=== PATIENT | female | born 1990 | race Caucasian/White ===

== ENCOUNTER 2018-11-10 11:41 | Outpatient (CLI) | payer OTHER ==
[2018-11-10 12:20] LABS: COLLECTION PERIOD 24 hrs
[2018-11-10 12:24] LABS: ADD UMIC NO; UR ASCORBIC ACID 20 mg/dL (NEGATIVE); UR BILIRUBIN (Dip) NEGATIVE (NEGATIVE); UR BLOOD (Dip) NEGATIVE (NEGATIVE); UR CLARITY CLEAR (CLEAR); UR COLOR YELLOW (YELLOW); UR GLUCOSE (Dip) NEGATIVE (NEGATIVE); UR KETONES (Dip) NEGATIVE (NEGATIVE); UR LEUKOCYTE ESTERASE (Dip) NEGATIVE Leu/ul (NEGATIVE); UR NITRITE (Dip) NEGATIVE (NEGATIVE); UR TOTAL PROTEIN (Dip) NEGATIVE (NEGATIVE); UR UROBILINOGEN (Dip) NEGATIVE (NEGATIVE)
[2018-11-10 12:26] LABS: ADD MAN DIFF? NO
[2018-11-10 12:27] LABS: BASOPHIL # 0.1 10^3/ul (0.0-0.1); BASOPHILS % 0.7 % (0.0-2.0); EOSINOPHILS # 0.3 10^3/ul (0.0-0.5); EOSINOPHILS % 2.8 % (0.0-7.0); HEMATOCRIT 37.4 % (37.0-47.0); HEMOGLOBIN 12.6 g/dl (12.0-16.0); LYMPHOCYTES # 1.7 10^3/ul (0.8-2.9); LYMPHOCYTES % 18.9 % (15.0-51.0); MEAN CORPUSCULAR HEMOGLOBIN 30.7 pg (29.0-33.0); MEAN CORPUSCULAR HGB CONC 33.7 g/dl (32.0-37.0); MEAN CORPUSCULAR VOLUME 91.2 fl (82.0-101.0); MEAN PLATELET VOLUME 10.9 fl (7.4-10.4); MONOCYTE # 0.9 10^3/ul (0.3-0.9); NEUTROPHILS % 66.3 % (39.0-77.0); PLATELET COUNT 189 10^3/UL (140-415); RED CELL DISTRIBUTION WIDTH 14.1 % (11.5-14.5)
[2018-11-10 12:51] LABS: ALANINE AMINOTRANSFERASE 10 IU/L (13-69); ALBUMIN 3.7 g/dl (3.3-4.9); ALKALINE PHOSPHATASE 95 IU/L (42-121); ANION GAP 8 (5-13); ASPARTATE AMINO TRANSFERASE 18 IU/L (15-46); BILIRUBIN,INDIRECT 0.4 mg/dl (0-1.1); BILIRUBIN,TOTAL 0.4 mg/dl (0.2-1.3); BLOOD UREA NITROGEN 12 mg/dl (7-20); CALCIUM 9.1 mg/dl (8.4-10.2); CARBON DIOXIDE 22 mmol/L (21-31); CHLORIDE 107 mmol/L (97-110); CREATININE 0.53 mg/dl (0.44-1.00); Estimated GFR > 60 mL/min (>60); GLUCOSE 76 mg/dl (70-220); INR 0.99; PARTIAL THROMBOPLASTIN TIME 22.9 Sec (23.0-35.0); POTASSIUM 4.2 mmol/L (3.5-5.1); PROTIME 13.2 Sec (11.9-14.9); SODIUM 137 mmol/L (135-144); TOTAL PROTEIN 7.4 g/dl (6.1-8.1); URIC ACID 5.1 mg/dl (3.1-7.9)
[2018-11-10 13:23] LABS: COLLECTION PERIOD 24 hrs; CREATININE CLEARANCE 181.9 mls/min (84.0-162.0); CREATININE,URINE RANDOM 111.07 mg/dl (20-320); SCRET 0.53 mg/dl (0.44-1.00); VOLUME 1250 ml/24hrs; VOLUME 1250 mls
== END 2018-11-10 14:40 | disposition home or self-care (01) ==
LOC: OBT 11:41 → L-D 11:41 → OBT 14:40
DX: O36.5930 Maternal care for other known or suspected poor fetal growth, third trimester, not applicable or unspecified (principal); O36.8330 Maternal care for abnormalities of the fetal heart rate or rhythm, third trimester, not applicable or unspecified; O26.893 Other specified pregnancy related conditions, third trimester; R51 Headache; H53.8 Other visual disturbances; Z3A.36 36 weeks gestation of pregnancy
CPT/HCPCS: 76818; 80053; 81003; 82575; 84156; 84560; 85025; 85384; 85610; 85730

== ENCOUNTER 2018-11-14 11:29 | Outpatient (CLI) | payer OTHER | END 2018-11-14 13:05 | disposition home or self-care (01) | LOC: OBT 11:29 → L-D 11:29 → OBT 13:05 | DX: O36.5930 Maternal care for other known or suspected poor fetal growth, third trimester, not applicable or unspecified (principal); O36.8330 Maternal care for abnormalities of the fetal heart rate or rhythm, third trimester, not applicable or unspecified; Z3A.36 36 weeks gestation of pregnancy | CPT/HCPCS: 76818 ==

== ENCOUNTER 2018-11-24 08:56 | Inpatient (IN) | payer OTHER ==
[2018-11-24 11:13] LABS: ADD MAN DIFF? NO
[2018-11-24 11:15] LABS: WHITE BLOOD COUNT 8.7 10^3/ul (4.8-10.8)
[2018-11-24 11:15] LABS: BASOPHIL # 0.1 10^3/ul (0.0-0.1); BASOPHILS % 0.6 % (0.0-2.0); EOSINOPHILS # 0.2 10^3/ul (0.0-0.5); EOSINOPHILS % 2.5 % (0.0-7.0); HEMATOCRIT 38.2 % (37.0-47.0); HEMOGLOBIN 13.1 g/dl (12.0-16.0); LYMPHOCYTES % 22.4 % (15.0-51.0); MEAN CORPUSCULAR HEMOGLOBIN 31.1 pg (29.0-33.0); MEAN CORPUSCULAR HGB CONC 34.3 g/dl (32.0-37.0); MEAN CORPUSCULAR VOLUME 90.7 fl (82.0-101.0); MEAN PLATELET VOLUME 11.5 fl (7.4-10.4); MONOCYTE # 0.9 10^3/ul (0.3-0.9); MONOCYTES % 10.7 % (0.0-11.0); NEUTROPHIL # 5.5 10^3/ul (1.6-7.5); NEUTROPHILS % 62.9 % (39.0-77.0); PLATELET COUNT 196 10^3/UL (140-415); RED BLOOD COUNT 4.21 10^6/ul (4.20-5.40); RED CELL DISTRIBUTION WIDTH 14.5 % (11.5-14.5)
[2018-11-24] MEDS: LACTATED RINGER'S 1,000 ML IV ×2 (11:18→17:25)
[2018-11-24 11:30] LABS: INR 0.92; PROTIME 12.5 Sec (11.9-14.9)
[2018-11-24] MEDS ORDERED: METHYLERGONOVINE 0.2 MG INJ IM (11:30)
[2018-11-24] MEDS ORDERED: MISOPROSTOL 200 MCG TAB PR (11:30)
[2018-11-24] MEDS ORDERED: LIDOCAINE 1% (MPF) 30 ML INJ INJ (11:30)
[2018-11-24] MEDS ORDERED: OXYTOCIN 30 UNITS/LR 500 ML IV ×2 (11:30)
[2018-11-24] MEDS ORDERED: CARBOPROST 250 MCG INJ IM (11:30)
[2018-11-24] MEDS ORDERED: MISOPROSTOL 50 MCG CAPSULE VAG ×2 (11:30→17:00)
[2018-11-24 11:31] LABS: PARTIAL THROMBOPLASTIN TIME 23.8 Sec (23.0-35.0)
[2018-11-24] MEDS: MISOPROSTOL 50 MCG CAPSULE PO (11:52)
[2018-11-24] MEDS: MISOPROSTOL 50 MCG CAPSULE VAG (16:08)
[2018-11-24] MEDS ORDERED: DIPHENHYDRAMINE 50 MG INJ IV (20:30)
[2018-11-24] MEDS ORDERED: KETOROLAC 30 MG INJ IV (20:30)
[2018-11-24] MEDS ORDERED: HYDROmorphONE 0.5 MG/0.5 ML SYG IV ×2 (20:30)
[2018-11-24] MEDS ORDERED: NALOXONE (0.4 MG/ML) INJ IV (20:30)
[2018-11-24] MEDS: OXYTOCIN 30 UNITS/LR 500 ML IV (22:54)
[2018-11-25] MEDS: LACTATED RINGER'S 1,000 ML IV (04:38)
[2018-11-25] MEDS: FENTAnyl 2MCG/ML-ROPIV 0.2% 100 ML BAG EPI (05:28)
[2018-11-25] MEDS: ONDANSETRON 4 MG INJ IV (09:27)
[2018-11-25] MEDS: OXYTOCIN 30 UNITS/LR 500 ML IV ×2 (10:14→12:54)
[2018-11-25] MEDS ORDERED: MISOPROSTOL 200 MCG TAB PR (13:00)
[2018-11-25] MEDS ORDERED: METHYLERGONOVINE 0.2 MG INJ IM (13:00)
[2018-11-25] MEDS ORDERED: DIPHENHYDRAMINE 25 MG CAP PO (13:00)
[2018-11-25] MEDS ORDERED: ONDANSETRON 4 MG INJ IV (13:00)
[2018-11-25] MEDS ORDERED: ACETAMINOPHEN 325 MG TAB PO (13:00)
[2018-11-25] MEDS ORDERED: OXYTOCIN 30 UNITS/LR 500 ML IV (13:00)
[2018-11-25] MEDS ORDERED: CARBOPROST 250 MCG INJ IM (13:00)
[2018-11-25] MEDS ORDERED: HYDROCODONE/APAP (5/325) TAB PO ×2 (13:00)
[2018-11-25] MEDS: BENZOCAINE 20% 56 ML SPRAY TOP (17:22)
[2018-11-25] MEDS: LANOLIN HPA 1 PKT TOP (17:22)
[2018-11-25] MEDS: WITCH HAZEL/GLYCERIN PAD PR (17:22)
[2018-11-25] MEDS: IBUPROFEN 800 MG TAB PO ×2 (17:23→23:59)
[2018-11-25] MEDS: SENNA/DOCUSATE NA (8.6MG/50MG) TAB PO (21:13)
[2018-11-26] MEDS: IBUPROFEN 800 MG TAB PO ×4 (05:34→23:37)
[2018-11-26 08:40] LABS: ADD MAN DIFF? NO
[2018-11-26 08:47] LABS: BASOPHIL # 0.1 10^3/ul (0.0-0.1); BASOPHILS % 0.5 % (0.0-2.0); EOSINOPHILS # 0.2 10^3/ul (0.0-0.5); EOSINOPHILS % 1.7 % (0.0-7.0); HEMATOCRIT 35.5 % (37.0-47.0); HEMOGLOBIN 11.9 g/dl (12.0-16.0); LYMPHOCYTES # 2.4 10^3/ul (0.8-2.9); LYMPHOCYTES % 18.8 % (15.0-51.0); MEAN CORPUSCULAR HEMOGLOBIN 30.8 pg (29.0-33.0); MEAN CORPUSCULAR HGB CONC 33.5 g/dl (32.0-37.0); MEAN PLATELET VOLUME 11.4 fl (7.4-10.4); MONOCYTE # 0.9 10^3/ul (0.3-0.9); MONOCYTES % 7.3 % (0.0-11.0); PLATELET COUNT 167 10^3/UL (140-415); RED BLOOD COUNT 3.86 10^6/ul (4.20-5.40); RED CELL DISTRIBUTION WIDTH 14.5 % (11.5-14.5)
[2018-11-26 08:47] LABS: WHITE BLOOD COUNT 12.7 10^3/ul (4.8-10.8)
[2018-11-26] MEDS: SENNA/DOCUSATE NA (8.6MG/50MG) TAB PO ×2 (10:11→21:00)
[2018-11-26 15:34] LABS: RAPID PLASMA REAGIN NONREACTIVE (NR)
[2018-11-27] MEDS: IBUPROFEN 800 MG TAB PO ×2 (06:20→12:06)
[2018-11-27] MEDS: SENNA/DOCUSATE NA (8.6MG/50MG) TAB PO (09:00)
[2018-11-27] MEDS: VARICELLA VACCINE LIVE/PF 1,350 UNIT/0.5 ML ML SC* (09:00)
[2018-11-27] MEDS: DIPHTH/TET/ACEL PERTUSS (ADULT) 0.5 ML VIAL IM* (09:00)
[2018-11-27] MEDS: MEASLES,MUMPS,RUBELLA VACCINE INJ SC* (09:00)
[2018-11-27] MEDS: WITCH HAZEL/GLYCERIN PAD PR (11:51)
== END 2018-11-27 16:19 | disposition home or self-care (01) | DRG 806 ==
LOC: PP1 11-25 12:22 → L-D 08:56
PROVIDERS: Obstetrics & Gynecology
PROC: 10E0XZZ Delivery of Products of Conception, External Approach (ICD-10-PCS; principal; 2018-11-25)
PROC: 0UQGXZZ Repair Vagina, External Approach (ICD-10-PCS; 2018-11-25)
PROC: 3E0P7VZ Introduction of Hormone into Female Reproductive, Via Natural or Artificial Opening (ICD-10-PCS; 2018-11-25)
DX: O36.5930 Maternal care for other known or suspected poor fetal growth, third trimester, not applicable or unspecified (principal); O71.4 Obstetric high vaginal laceration alone; Z37.0 Single live birth; O69.81X0 Labor and delivery complicated by cord around neck, without compression, not applicable or unspecified; O99.214 Obesity complicating childbirth; E66.9 Obesity, unspecified; Z3A.38 38 weeks gestation of pregnancy
CPT/HCPCS: 62322; 85025; 85610; 85730; 86592; 86850; 86900; 86901; 90716